=== PATIENT | female | born 1970 | race Hispanic/Latino ===

== ENCOUNTER 2022-04-29 14:15 | Emergency (ER) | payer OTHER ==
[~2022-04-29] VITALS: Ht 152.4 cm; Wt 38.6 kg
[2022-04-29 17:49] VITALS: BP 138/80
[2022-04-29] MEDS ORDERED: ACETAMINOPHEN 325 MG/10.15ML UDCUP ONE (17:52)
[2022-04-29] MEDS ORDERED: ACETAMINOPHEN 325 MG/10.15ML UDCUP PO ONE (18:00)
== END 2022-04-29 18:58 | disposition home or self-care (01) ==
LOC: EDH 14:15
DX: M25.522 Pain in left elbow (principal); M25.552 Pain in left hip; I25.10 Atherosclerotic heart disease of native coronary artery without angina pectoris; E78.00 Pure hypercholesterolemia, unspecified; Z98.890 Other specified postprocedural states; W19.XXXA Unspecified fall, initial encounter; Y93.89 Activity, other specified; Y92.89 Other specified places as the place of occurrence of the external cause; Y99.8 Other external cause status
CPT/HCPCS: 73070; 73502